=== PATIENT | female | born 1985 | race Caucasian/White ===

== ENCOUNTER 2018-04-25 08:15 | Inpatient (IN) | payer OTHER ==
[~2018-04-25] VITALS: Ht 162.6 cm; Wt 73.0 kg
[2018-04-25] MEDS ORDERED: OXYTOCIN 30 UNITS/LACT RINGERS 500 ML IV ONE (11:08)
[2018-04-25] MEDS ORDERED: RINGERS SOLUTION,LACTATED 1,000 ML IV PRN (11:08)
[2018-04-25] MEDS ORDERED: OXYTOCIN 30 UNITS/LACT RINGERS 500 ML IV PRN (11:08)
[2018-04-25] MEDS ORDERED: CITRIC ACID/SODIUM CITRATE 30 ML SOLUTION UDCUP PO PRN (11:15)
[2018-04-25] MEDS ORDERED: METHYLERGONOVINE MALEATE 0.2 MG/ML VIAL IM PRN (11:15)
[2018-04-25] MEDS ORDERED: FentaNYL CITRATE-PF 100 MCG/2 ML VIAL IVP PRN (11:15)
[2018-04-25] MEDS ORDERED: METOCLOPRAMIDE HCL 5 MG/ML 2 ML VIAL IVP PRN (11:15)
[2018-04-25] MEDS ORDERED: TERBUTALINE SULFATE 1 MG/ML VIAL SQ PRN (11:15)
[2018-04-25] MEDS ORDERED: RINGERS SOLUTION,LACTATED 1,000 ML IV SCH (11:44)
[2018-04-25] MEDS ORDERED: MISOPROSTOL 25 MCG TABLET VG ONE (11:45)
[2018-04-25] MEDS ORDERED: PNV11TAB PO (11:46)
[2018-04-25 11:47] LABS: BASOPHILS % (AUTO) 0.6 % (0.0-2.0); EOSINOPHILS % (AUTO) 0.5 % (1.0-6.0); HEMATOCRIT 32.4 % (36-46); LYMPHOCYTES # (AUTO) 1.8 K/uL (1.0-4.8); LYMPHOCYTES % (AUTO) 21.8 % (22.0-44.0); MEAN CORPUSCULAR HEMOGLOBIN 30.2 pg (26.0-34.0); MEAN CORPUSCULAR HGB CONC 33.8 G/dL (31.0-37.0); MEAN CORPUSCULAR VOLUME 89 fL (80-100); MONOCYTES # (AUTO) 0.4 K/uL (0.1-1.0); NEUTROPHILS % (AUTO) 72.1 % (40.0-70.0); PLATELET COUNT (AUTO)-OB 194 K/uL (150-450); RED BLOOD CELL COUNT(AUTO) 3.64 MIL/uL (4.00-5.20)
[2018-04-25] MEDS: RINGERS SOLUTION,LACTATED 1,000 ML IV SCH ×3 (12:10→21:32)
[2018-04-25 12:14] VITALS: BP 97/66
[2018-04-25] MEDS ORDERED: POVIDONE-IODINE 10% 240 ML SOLUTION TP ONE (13:45)
[2018-04-25] MEDS ORDERED: ROPIVACAINE HCL/PF 0.2% 100 ML ED ONE (20:00)
[2018-04-25] MEDS ORDERED: ONDANSETRON HCL 4 MG/2 ML VIAL IVP PRN (20:30)
[2018-04-25] MEDS ORDERED: DiphenhydrAMINE HCL 50 MG/ML VIAL IVP PRN (20:30)
[2018-04-25] MEDS ORDERED: ROPIVACAINE HCL/PF 0.2% 100 ML ED PRN (20:30)
[2018-04-25] MEDS: OXYGEN THERAPY IH SCH (22:50)
[2018-04-26] MEDS: RINGERS SOLUTION,LACTATED 1,000 ML IV SCH ×2 (04:57→07:47)
[2018-04-26] MEDS ORDERED: POVIDONE-IODINE 10% 240 ML SOLUTION TP ONE (08:45)
[2018-04-26] MEDS: OXYGEN THERAPY IH SCH (10:51)
[2018-04-26] MEDS ORDERED: OXYTOCIN 30 UNITS/LACT RINGERS 500 ML IV ONE (10:52)
[2018-04-26] MEDS ORDERED: OxyCODONE HCL/ACETAMINOPHEN 5-325 MG TABLET PO PRN ×2 (11:00)
[2018-04-26] MEDS ORDERED: LIDOCAINE/PF 1% 30 ML VIAL INJ PRN (11:00)
[2018-04-26] MEDS ORDERED: LANOLIN 7 GM OINTMENT TP PRN (11:00)
[2018-04-26] MEDS ORDERED: BENZOCAINE 20%/MENTHOL 56 GM SPRAY CANISTER TP PRN (11:00)
[2018-04-26] MEDS ORDERED: GLYCERIN/WITCH HAZEL LEAF 40 PADS JAR TP PRN (11:00)
[2018-04-26] MEDS: IBUPROFEN 800 MG TABLET PO PRN (15:24)
[2018-04-26] MEDS: MAGNESIUM HYDROXIDE SUSPENSION 30 ML UDCUP PO PRN (21:27)
[2018-04-27] MEDS: IBUPROFEN 800 MG TABLET PO PRN (05:10)
[2018-04-27 06:02] LABS: BASOPHILS % (AUTO) 0.3 % (0.0-2.0); EOSINOPHILS % (AUTO) 0.7 % (1.0-6.0); HEMATOCRIT 29.7 % (36-46); LYMPHOCYTES # (AUTO) 2.2 K/uL (1.0-4.8); LYMPHOCYTES % (AUTO) 12.7 % (22.0-44.0); MEAN CORPUSCULAR HEMOGLOBIN 30.5 pg (26.0-34.0); MEAN CORPUSCULAR HGB CONC 33.8 G/dL (31.0-37.0); MEAN CORPUSCULAR VOLUME 90 fL (80-100); MONOCYTES # (AUTO) 1.1 K/uL (0.1-1.0); NEUTROPHILS % (AUTO) 80.3 % (40.0-70.0); PLATELET COUNT (AUTO)-OB 164 K/uL (150-450); RED BLOOD CELL COUNT(AUTO) 3.29 MIL/uL (4.00-5.20); RED CELL DISTRIBUTION WIDTH 12.9 % (11.5-14.5)
[2018-04-27] MEDS ORDERED: DSS100 PO (09:47)
[2018-04-27] MEDS ORDERED: IBUP-2071 PO (09:47)
[2018-04-27] MEDS ORDERED: FERR-89 PO (09:48)
[2018-04-27] MEDS: MAGNESIUM HYDROXIDE SUSPENSION 30 ML UDCUP PO PRN (11:07)
== END 2018-04-27 11:35 | disposition home or self-care (01) | DRG 807 ==
LOC: 4S 08:15 → OBSVTOIN 08:15 → 4S 09:01 → UNDOADMOB 09:01
PROVIDERS: ADMIT Obstetrics & Gynecology; ATTEND Obstetrics & Gynecology
PROC: 10E0XZZ Delivery of Products of Conception, External Approach (ICD-10-PCS; principal; 2018-04-26)
PROC: 3E0R3BZ Introduction of Anesthetic Agent into Spinal Canal, Percutaneous Approach (ICD-10-PCS; 2018-04-26)
PROC: 00HU33Z Insertion of Infusion Device into Spinal Canal, Percutaneous Approach (ICD-10-PCS; 2018-04-26)
PROC: 10907ZC Drainage of Amniotic Fluid, Therapeutic from Products of Conception, Via Natural or Artificial Opening (ICD-10-PCS; 2018-04-26)
DX: O80 Encounter for full-term uncomplicated delivery (principal); Z37.0 Single live birth; Z3A.39 39 weeks gestation of pregnancy
CPT/HCPCS: 86850; 86900; 86901; J2590; J2795; J7120